=== PATIENT | male | born 2000 | race Caucasian/White ===

== ENCOUNTER 2020-12-19 10:32 | Emergency (ER) | payer OTHER, SELFPAY ==
[2020-12-19 10:37] VITALS: BP 135/78; PULSE 97; RESP 18; TEMP 36.9; O2SAT 100
[2020-12-19 11:03] LABS: Abs Immature Grans 0.01 10^3/uL (0.0-0.06); Absolute Basophil Count 0.05 10^3/uL (0.0-0.2); Absolute Eosinophil Count 0.21 10^3/uL (0.0-0.7); Absolute Lymphocyte Count 2.79 10^3/uL (1.2-3.4); Absolute Monocyte Count 0.57 10^3/uL (0.1-0.8); Absolute Neutrophil Count 3.44 10^3/uL (1.2-6.7); Basophils % 0.7; HCT 49.3 % (40.0-50.0); HGB 16.8 g/dL (13.5-17.5); Immature Grans % 0.1; Lymphocytes % 39.5; MCH 29.1 pg (27.0-33.0); MCHC 34.1 % (32.0-36.0); MCV 85.3 fL (80-95); MPV 9.8 fL (8.0-11.0); Monocytes % 8.1; Neutrophils % 48.6; Nucleated RBC 0 %; Platelet Count 286 10^3/uL (130-400); RBC 5.78 10^6/uL (4.36-5.78); RDW-SD 37.1 fL; WBC 7.07 10^3/uL (4.4-10.8)
[2020-12-19 11:26] LABS: Salicylate < 2.8 mg/dL (<2.8)
[2020-12-19 11:27] LABS: Acetaminophen < 2 ug/mL (10-30)
[2020-12-19 11:28] LABS: ALT 51 U/L (16-63); AST 25 U/L (15-37); Albumin 4.5 g/dL (3.4-5.0); Alkaline Phosphatase 93 U/L (46-116); Anion Gap 7.5 mmol/L (3-11); BUN 8 mg/dL (7-18); Bilirubin, Total 0.5 mg/dL (0.2-1.0); CO2 30.5 mmol/L (21.0-32.0); CREATININE 1.1 mg/dL (0.70-1.30); Calcium 9.3 mg/dL (8.5-10.1); Chloride 105 mmol/L (98-107); ETHANOL BLOOD < 3.0 mg/dL (<3); Glucose 95 mg/dL (74-106); Potassium 3.8 mmol/L (3.5-5.1); Sodium 143 mmol/L (136-145); Total Protein 8.2 g/dL (6.4-8.2)
[2020-12-19 12:26] LABS: Bilirubin Negative (Negative); Blood Negative (Negative); Clarity Clear (Clear); Glucose Negative (Negative); Ketones Trace mg/dL (Negative); Leukocyte Esterase Negative (Negative); Nitrite Negative (Negative); Specific Gravity >= 1.030 (1.005-1.025); Urobilinogen 0.2 EU/dL (Up TO 0.2); pH 5.5 (5-8)
[2020-12-19 12:34] LABS: Bacteria Many HPF (Negative); Crystals Negative HPF (Negative); Epithelial Cells Rare HPF (Negative); RBC 0-2 HPF (0-2); WBC 0-2 HPF (0-5)
[2020-12-19 12:35] LABS: C & S Indicated? Yes; Casts Negative LPF (Negative); Mucus Heavy (Negative)
[2020-12-19 12:36] LABS: *AMPHETAMINES SCREEN URINE Negative (Negative); *BARBITURATES SCREEN URINE Negative (Negative); *BENZODIAZEPINES SCREEN URINE Negative (Negative); Cannabinoids THC Negative (Negative); Cocaine Screen,Urine Negative (Negative); METHADONE URINE SCREEN Negative (Negative); OPIATES URINE SCREEN Negative (Negative)
[2020-12-19 12:37] LABS: Tricyclic Antidepressants Negative (Negative)
--- NOTE | 2020-12-19 15:06 | W.ED.GENAD ---
Discharge Plan Disposition Patient Disposition: HOME Condition: Stable Discharge Details Clinical Impression: Mood disorder Primary Care Provider: Unknown,Unknown ED Provider: Madison Abel Discharge Instructions Additional Instructions: Please follow-up with the [facility] Schedule appointment with counselor Please call your advisor right: Please call [facility] to check in at [phone], you must call them by 3 PM Please return immediately should you have suicidal ideation, worsening depression, or with progression of complaints Discharge Data Discharge Date/Time-TO BE ENTERED AT DEPARTURE: 12/19/20 15:08 Medical Decision Making Patient's diagnostic labs do not show any evidence of acute abnormality Patient is alert, oriented, of decisional capacity, adamantly denies any suicidal ideation and I have good support system Her mental health counselor, Kelly had a long discussion with this patient, However she was in the room and she feels as though the patient is safe for discharge home at this time, patient is requesting discharge home and brought himself here independently She has made contact with the [facility] at the [facility] where patient resides for counseling Patient was ge for safety and will call to check in at 3:00 tomorrow He will also follow-up with his already tomorrow, removal ensure that patient has good follow-up I think at this time although the story is concerning I think patient is stable for discharge home, he feels comfortable discharge home and is of decisional capacity He is given a threshold to return should he have new or worsening complaints at home in stable condition with stable vital Patient was numerous times during this encounter Medical Records Medical records reviewed: Yes I reviewed the patient's medical records. Lab Data Lab results reviewed: Yes I reviewed the patient's lab results. HPI General Mode of arrival: ambulatory. Date/Time Provider Initiated Documentation: 12/19/20 10:48. Limitations to Documentation: no limitations. Information obtained by: patient. HPI Narrative: This 20-year-old male subsequent to our discussion her evaluation. With report of depression and intermittent suicidal ideation. Yesterday he felt vital fell around his neck but did not tighten it. He states that he does not about the risk associated and did not make any attempts to harm himself. He this morning was talking to a friend about how he been feeling intermittently and they recommended to be evaluated.He denies any suicidal ideation. Denies any homicidal ideation. He has been taking his medications as prescribed. He denies any auditory or visual hallucinations. He denies any drug use or alcohol consumption. Related Data Allergies Allergy/AdvReac Type Severity Reaction Status Date / Time No Known Allergies Allergy Unverified 12/19/20 10:41 General Stated Complaint: PsychEval JANESSA: 2 Review of Systems All systems reviewed & are unremarkable except as noted in HPI and below PFSH Social History Smoking/Tobacco Use Status: Never Smoking risk assessment performed?: Yes Drug use: Never Substance use type: does not use Do you feel safe at home: Yes Do you feel safe in your relationship?: Yes Exam Const General: cooperative, comfortable and no acute distress HENMT Head: normal to inspection Mouth: oral mucosae normal Throat: posterior oropharynx normal Eyes Pupils: PERRL Neck Other: No stridor, uvula midline, no visible evidence of trauma Resp Effort & Inspection: normal respiratory effort Auscultation: clear to auscultation bilaterally Cardio Rate: regular rate Rhythm: regular rhythm Skin General skin exam: no rashes or lesions noted Neuro General: patient alert and patient oriented x3 Cranial Nerves: CN's II-XI intact bilaterally Cognition: normal cognition Speech: speech normal Gait: normal gait Extrem General: normal to inspection Course Vital Signs Vital signs: Vital Signs Temperature 36.9 C 12/19/20 10:37 Pulse 97 H 12/19/20 10:37 Respiratory Rate 18 12/19/20 10:37 Blood Pressure 135/78 12/19/20 10:37 Pulse Oximetry 100 12/19/20 10:37 Temperature 36.9 C 12/19/20 10:37 Temperature Source Temporal Artery Scan 12/19/20 10:37 Pulse 97 H 12/19/20 10:37 Respiratory Rate 18 12/19/20 10:37 Respiratory Effort Non-Labored 12/19/20 10:58 Blood Pressure 135/78 12/19/20 10:37 Blood Pressure Position Sitting 12/19/20 10:37 Pulse Oximetry 100 12/19/20 10:37 Oxygen Delivery Method Room Air 12/19/20 10:37 Oxygen Flow Rate 0 12/19/20 10:37 Pain Level 0 12/19/20 10:37 Lab/Test Results Lab/Test Results: 12/19/20 12:17 Urine - Reflex from Ua Urine Culture - Pending Laboratory Tests Range/Units 12/19/20 12/19/20 12/19/20 10:56 10:56 10:56 WBC (4.4-10.8) 10^3/uL 7.07 RBC (4.36-5.78) 10^6/uL 5.78 Hgb (13.5-17.5) g/dL 16.8 Hct (40.0-50.0) % 49.3 MCV (80-95) fL 85.3 MCH (27.0-33.0) pg 29.1 MCHC (32.0-36.0) % 34.1 RDW (11.8-14.1) % 12.0 Plt Count (130-400) 10^3/uL 286 MPV (8.0-11.0) fL 9.8 Immature Gran % 0.1 Neutrophils % 48.6 Lymphocytes % 39.5 Monocytes % 8.1 Eosinophils % 3.0 Basophils % 0.7 Nucleated RBC % % 0 Absolute Neutrophils (1.2-6.7) 10^3/uL 3.44 Absolute Lymphocytes (1.2-3.4) 10^3/uL 2.79 Absolute Monocytes (0.1-0.8) 10^3/uL 0.57 Absolute Eosinophils (0.0-0.7) 10^3/uL 0.21 Absolute Basophils (0.0-0.2) 10^3/uL 0.05 Sodium (136-145) mmol/L 143 Potassium (3.5-5.1) mmol/L 3.8 Chloride (98-107) mmol/L 105 Carbon Dioxide (21.0-32.0) mmol/L 30.5 Anion Gap (3-11) mmol/L 7.5 BUN (7-18) mg/dL 8 Creatinine (0.70-1.30) mg/dL 1.1 Estimated GFR/1.73 m2 (mL/min/1.73m2) >= 60.00 Glucose (74-106) mg/dL 95 Calcium (8.5-10.1) mg/dL 9.3 Total Bilirubin (0.2-1.0) mg/dL 0.5 AST (15-37) U/L 25 ALT (16-63) U/L 51 Alkaline Phosphatase (46-116) U/L 93 Total Protein (6.4-8.2) g/dL 8.2 Albumin (3.4-5.0) g/dL 4.5 Urine Color (Yellow) Urine Clarity (Clear) Urine pH (5-8) Ur Specific [place] (1.005-1.025) Urine Protein (Negative) mg/dL Urine Ketones (Negative) mg/dL Urine Blood (Negative) Urine Nitrite (Negative) Urine Bilirubin (Negative) Urine Urobilinogen (Up TO 0.2) EU/dL Ur Leukocyte Esterase (Negative) Urine RBC (0-2) HPF Urine WBC (0-5) HPF Ur Epithelial Cells (Negative) HPF Urine Crystals (Negative) HPF Urine Bacteria (Negative) HPF Urine Casts (Negative) LPF Urine Mucus (Negative) Ur Culture Indicated? Urine Glucose (Negative) mg/dL Salicylates (<2.8) mg/dL < 2.8 Urine Opiates Screen (Negative) Urine Methadone Screen (Negative) Acetaminophen (10-30) ug/mL < 2 Ur Barbiturates Screen (Negative) Ur Tricyclics Screen (Negative) Ur Amphetamines Screen (Negative) U Benzodiazepines Scrn (Negative) Urine Cocaine Screen (Negative) Ur THC Screen (Negative) Ethyl Alcohol (<3) mg/dL < 3.0 Range/Units 12/19/20 12/19/20 12:17 12:17 WBC (4.4-10.8) 10^3/uL RBC (4.36-5.78) 10^6/uL Hgb (13.5-17.5) g/dL Hct (40.0-50.0) % MCV (80-95) fL MCH (27.0-33.0) pg MCHC (32.0-36.0) % RDW (11.8-14.1) % Plt Count (130-400) 10^3/uL MPV (8.0-11.0) fL Immature Gran % Neutrophils % Lymphocytes % Monocytes % Eosinophils % Basophils % Nucleated RBC % % Absolute Neutrophils (1.2-6.7) 10^3/uL Absolute Lymphocytes (1.2-3.4) 10^3/uL Absolute Monocytes (0.1-0.8) 10^3/uL Absolute Eosinophils (0.0-0.7) 10^3/uL Absolute Basophils (0.0-0.2) 10^3/uL Sodium (136-145) mmol/L Potassium (3.5-5.1) mmol/L Chloride (98-107) mmol/L Carbon Dioxide (21.0-32.0) mmol/L Anion Gap (3-11) mmol/L BUN (7-18) mg/dL Creatinine (0.70-1.30) mg/dL Estimated GFR/1.73 m2 (mL/min/1.73m2) Glucose (74-106) mg/dL Calcium (8.5-10.1) mg/dL Total Bilirubin (0.2-1.0) mg/dL AST (15-37) U/L ALT (16-63) U/L Alkaline Phosphatase (46-116) U/L Total Protein (6.4-8.2) g/dL Albumin (3.4-5.0) g/dL Urine Color (Yellow) Yellow Urine Clarity (Clear) Clear Urine pH (5-8) 5.5 Ur Specific [place] (1.005-1.025) >= 1.030 H Urine Protein (Negative) mg/dL Trace H Urine Ketones (Negative) mg/dL Trace H Urine Blood (Negative) Negative Urine Nitrite (Negative) Negative Urine Bilirubin (Negative) Negative Urine Urobilinogen (Up TO 0.2) EU/dL 0.2 Ur Leukocyte Esterase (Negative) Negative Urine RBC (0-2) HPF 0-2 Urine WBC (0-5) HPF 0-2 Ur Epithelial Cells (Negative) HPF Rare Urine Crystals (Negative) HPF Negative Urine Bacteria (Negative) HPF Many Urine Casts (Negative) LPF Negative Urine Mucus (Negative) Heavy Ur Culture Indicated? Yes Urine Glucose (Negative) mg/dL Negative Salicylates (<2.8) mg/dL Urine Opiates Screen (Negative) Negative Urine Methadone Screen (Negative) Negative Acetaminophen (10-30) ug/mL Ur Barbiturates Screen (Negative) Negative Ur Tricyclics Screen (Negative) Negative Ur Amphetamines Screen (Negative) Negative U Benzodiazepines Scrn (Negative) Negative Urine Cocaine Screen (Negative) Negative Ur THC Screen (Negative) Negative Ethyl Alcohol (<3) mg/dL
--- NOTE | 2020-12-19 15:57 | PDOC.MHCN ---
Date of service: 12/19/20 Time of Service: 15:58 Mental Health Crisis Note Presenting Issue How did you arrive at the ED and why did you come: Pt arrived via someone from his college ([employer]) after disclosing that he attempted do kill himself last night via stranglazion. Precipitating Factors Pt denied SI or HI today. He self reported a 0/10 on a risk scale. Pt is not showing any signs of delusions. Disposition BEHAVIOR: PT is very chatty and it is not sure if this is because he is nervous, his ADHD, the caffeinated drink he just drank or a mix of these. His speech is pressured and difficult to understand at times. He otherwise is cooperative and engaged. EYE CONTACT: Pt makes good eye contact. MOOD: Pt's mood is nervous. AFFECT: Affect is congruent with mood. APPETITE: Pt reported that he is eating okay. SLEEP(trouble falling/staying asleep: Sleep is reported to be fine. Plan Pt is not showing current risk factors and identifies that he only really needs to get his academics straightened out. He agreed to the following plan: 1. he will connect with his advisor before noon tomorrow to discuss an academic plan. 2. He will also connect with the [facility] for counseling supports. 3. He will call [facility] by 3 pm on 12.20.2020 to do a check in and to confirm he has made connection to advisor and [facility] for counseling. 4. He will call [facility] at any time he is feeling overwhelmed for support. Signature Clinician's Name/Title: Kelly Hurtado MS, [facility] Emergency Services Clinician, [facility]
== END 2020-12-19 15:08 | disposition home or self-care (01) ==
PROVIDERS: Nurse Practitioner Family; Emergency Provider Physician Assistant
DX: F39 Unspecified mood [affective] disorder (principal)
CPT/HCPCS: 36415; 80053; 80307; 99285; 80320; 80329; 81003; 81015; 85025; 87086; 99283